=== PATIENT | male | born 1985 | race Hispanic/Latino ===

== ENCOUNTER 2017-10-28 15:23 | Emergency (ER) | payer SELFPAY ==
[2017-10-28 16:09] LABS: ABG BASE EXCESS 2.7 mmol/L (-2.0-3.0); ABG HCO3 28.5 mmol/L (21.0-28.0); ABG OXYGEN SATURATION 83.8 % (95.0-99.0); ABG PCO2 48 mmHg (35-48)
[2017-10-28] MEDS ORDERED: ACETAMINOPHEN EXTRA STRENGTH 500 MG TABLET ONE (16:36)
[2017-10-28 17:25] LABS: POTASSIUM 3.6 mmol/L (3.5-5.1)
== END 2017-10-28 18:18 | disposition home or self-care (01) ==
LOC: EDH 15:23
DX: T58.01XA Toxic effect of carbon monoxide from motor vehicle exhaust, accidental (unintentional), initial encounter (principal); R42 Dizziness and giddiness; Z72.0 Tobacco use; Y92.89 Other specified places as the place of occurrence of the external cause
CPT/HCPCS: 36415; 36600; 71046; 80048; 82330; 82435; 82550; 82803; 82947; 83605; 84132; 84295; 84484; 85018

== ENCOUNTER 2019-03-03 17:25 | Emergency (ER) | payer SELFPAY ==
[2019-03-03] MEDS ORDERED: KETOROLAC TROMETHAMINE 60 MG/2 ML VIAL ONE (18:18)
== END 2019-03-03 18:43 | disposition home or self-care (01) ==
LOC: EDH 17:25
DX: K02.9 Dental caries, unspecified (principal); F17.200 Nicotine dependence, unspecified, uncomplicated
CPT/HCPCS: 96372; 99283; J1885

== ENCOUNTER 2019-08-11 17:11 | Emergency (ER) | payer SELFPAY ==
[2019-08-11] MEDS ORDERED: KETOROLAC TROMETHAMINE 30MG/ML ONE (17:41)
[2019-08-11] MEDS ORDERED: CYCLOBENZAPRINE HCL 10 MG TABLET ONE (17:41)
== END 2019-08-11 18:32 | disposition home or self-care (01) ==
LOC: EDH 17:11
DX: S50.02XA Contusion of left elbow, initial encounter (principal); W22.8XXA Striking against or struck by other objects, initial encounter; Y93.89 Activity, other specified; Y92.488 Other paved roadways as the place of occurrence of the external cause; Y99.8 Other external cause status
CPT/HCPCS: 73080; 96372; 99283; J1885

== ENCOUNTER 2024-05-22 20:55 | Emergency (ER) | payer BC ==
[~2024-05-22] VITALS: Ht 170.2 cm; Wt 59.9 kg
[2024-05-22 21:05] VITALS: TEMP 98.1
--- NOTE | 2024-05-22 21:30 | ERN ---
ED Note History of Present Illness Stated Complaint: RT ARM INJURY Chief Complaint: Laceration/Avulsion Time Seen by MD: 20:58 Time Seen by Midlevel: 20:58 Dictation: The patient is a 39-year-old male with no past medical history who presents to the emergency department with complaints of wound to right upper arm after he accidentally was injured with a bone grinder at around 11:00 a.m.. Patient denies any other injuries. Unknown Tdap vaccines status Allergies: Coded Allergies: No Known Allergies (Unverified Allergy, Unknown, 03/03/19) Past Medical History Past Medical History: No Pertinent History Surgical History: None RN Note Reviewed/Agreed w/PFSH: Yes Review of System Dictation Constitutional: Negative for fever,chills, and weight loss Eyes: Negative for injury, pain,redness, and discharge ENT: Negative for injury,pain or swelling Cardiovascular: Negative for chest pain, palpitations, and edema Respiratory: Negative for shortness of breath, cough, and wheezing, Abdomen/GI: Negative for abdominal pain, nausea, vomiting, diarrhea, and constipation Back: Negative for injury and pain : Negative for injury, bleeding and discharge MS/Extremity: Negative for injury and deformity Skin: Negative for rash, and discoloration. Positive for right upper arm laceration Neuro: Negative for headache, weakness, numbness, tingling, and seizure Psych: Negative for suicide ideation, homicidal ideation, and hallucinations Initial Vital Sign VS Vital Signs Date Time Temp Pulse Resp B/P (MAP) Pulse Ox O2 Delivery O2 Flow Rate FiO2 05/22/24 20:57 96.6 77 16 130/97 100 Room Air 05/22/24 21:05 0 21 Physical Exam Dictation Vital Signs reviewed General Appearance: Alert, oriented x 3, no acute distress, well developed, nourished. Head and Face: non-traumatic. Eyes: PERRL, pink conjunctivas, eyelid no trauma, anterior chamber with arcus senilis. Ears: Pinnas intact and no signs of trauma or erythema ear canals clear and no discharge TM no erythema Nose: No discharge, no bleeding. Oropharynx: Mouth normal, tongue pink. pharynx clear,no erythema, tonsils no exudates, no abscesses noted, mucous membrane moist Neck: Supple, non-tender, no thyromegaly, no masses, no JVD, no bruits Breast:Deferred Chest:No tenderness, no crepitus, no paradoxical movement, no retractions Lungs:Clear, well-ventilated, symmetric, no rales, no wheezing, no rhonchi, no stridor, good breath sounds bilaterally Heart: Regular rate, regular rhythm, no murmur, no gallops Vascular: no peripheral edema, Abdomen: Soft, positive bowel sounds, nondistended, no guarding, nontender, no rebound, no masses no hepatomegaly, no splenomegaly, no Coelho's sign, no hernias. Rectal: Deferred Genital: Deferred Neurological: Normal speech, motor function intact, sensory function intact Musculoskeletal: Neck nontender, full range of motion, back nontender, full range of motion, Extremities: nontender, full range of motion Skin: Color pink, dry, no turgor, no rash, no abrasions, no contusions. 1.5 cm laceration to right upper arm, minimal bleeding. superficial abrasion about 4cm, bruising noted. Lymphatic: Deferred Results (Laboratory/Radiology) Labs Reviewed?: Yes ED Course ED Course Orders Procedure Category Date Status Time Humerus 2+Vws Rt RAD 05/22/24 Taken 21:04 Diph,Pertuss(Acell),Tet PHA 05/22/24 Complete Vac/Pf (Tdap) 21:30 Wound Care (Er) CPOE 05/22/24 Transmitted 21:04 Lidocaine Hcl 1% 20ml PHA 05/22/24 In Process Vial (Lidocaine Hc 21:30 Acetaminophen 500mg PHA 05/22/24 Complete Tab (Tylenol 500mg T 21:30 Cephalexin 500 Mg PHA 05/22/24 Complete Capsule (Keflex 500 Mg 21:30 Neomy PHA 05/22/24 In Process Sulf/Bacitra/Polymyxin 23:00 Current Medications Medications (Trade) Dose Ordered Sig/Rohini Route PRN Reason Start Time Stop Time Status Last Admin Dose Admin Acetaminophen (TYLenol 500MG TAB) 1,000 mg ONCE ONCE PO 05/22/24 21:30 05/22/24 21:31 DC 05/22/24 21:38 Cephalexin (Keflex 500 MG CAPS) 500 mg ONCE ONCE PO 05/22/24 21:30 05/22/24 21:31 DC 05/22/24 21:38 Diphtheria/ Tetanus/Acell Pertussis (Tdap) 0.5 ml ONCE ONCE IM 05/22/24 21:30 05/22/24 21:31 DC 05/22/24 21:37 Lidocaine HCl (Lidocaine HCl 1% 20ml Vial) 10 ml ONCE INJ 05/22/24 21:30 06/21/24 21:29 05/22/24 21:39 Neomycin/ Polymyxin/ Bacitracin (Triple Antibiotic Ointment) 1 appl ONCE ONCE TP 05/22/24 23:00 05/22/24 23:01 Vital Signs Date Time Temp Pulse Resp B/P (MAP) Pulse Ox O2 Delivery O2 Flow Rate FiO2 05/22/24 21:05 98.1 82 18 135/78 98 Room Air* 0 21 05/22/24 20:57 96.6 77 16 130/97 100 Room Air Medical Decision Making MDM The patient is a 39-year-old male with no past medical history who presents to the emergency department with complaints of wound to right upper arm after he accidentally was injured with a bone grinder at around 11:00 a.m.. Patient denies any other injuries. Unknown Tdap vaccines status no obvious fractures or foreign body seen on x-ray. Laceration repair done. Patient tolerated well, no foreign bodies identified, patient's arm neurovascularly intact. Will be discharged to follow up with the PCP. Differential diagnosis: Open fracture, laceration, cellulitis, retained foreign body Need for hospitalization: Patient does not meet criteria for hospitalization. There are no social concerns with this patient. Procedure Procedure Dictation: Time and Date Performed: 05/22/20240 INDICATION: Laceration Location: Right upper arm Informed consent was obtained. Pre-procedure time out was obtained. Anesthetic: 1% lidocaine 5 mL Manual prep of skin and wound was done with hibmarianans. Foreign Body: NO foreign bodies were identified. Length Repaired:1.5 cm Suture used:Nylon 4 # of simple sutures:3 Aseptic technique was used during the entire procedure. Wound Location: upper extremity Wound's Depth, Shape: superficial Wound Explored: clean Betadine Prep?: Yes Anesthesia: 1% Lidocaine Wound Debrided: minimal Suture Size/Type: 4:0, nylon Number of Sutures: 3 Layer Closure?: Yes DX & DISP Disposition: Discharge Departure Condition: Stable Scripts Cephalexin Monohydrate (Keflex) 500 Mg Cap 500 MG PO QID for 7 Days, #28 CAP Prov: ODALIS RAMIREZ LOGGING EQUIPMENT OPERATOR 05/22/24 Additional Instructions: Keep your stitches clean and dry. Do not put your stitches under water, such as in a bath, pool, or guzman. This can slow healing and raise your chance of getting an infection. Avoid activities or sports that could hurt the area of your stitches for 1-2 weeks. You should call your doctor if you develop any fever, redness or swelling around the cut, or pus draining from the cut. Your sutures will need to be removed in 7 days. FOLLOW-UP WITH PRIMARY CARE PROVIDER IN 1 TO 2 DAYS. TAKE MEDICATIONS DIRECTED HERE IN THE EMERGENCY ROOM. OKAY TO CONTINUE HOME MEDICATIONS UNLESS OTHERWISE DISCUSSED DURING YOUR VISIT IN THE EMERGENCY ROOM TODAY. RETURN TO YOUR NEAREST EMERGENCY ROOM IF SYMPTOMS WORSEN OR IF THERE IS NO IMPROVEMENT. CALL 911 IF YOU NEED IMMEDIATE ASSISTANCE. TAKE TYLENOL OR MOTRIN [id number] NEEDED AND IF NO CONTRAINDICATIONS ARE PRESENT. INCREASE ORAL HYDRATION. A WOUND CULTURE OR URINE CULTURE WAS ORDERED HERE IN THE EMERGENCY ROOM DEPARTMENT PLEASE FOLLOW-UP WITH PRIMARY CARE PROVIDER AND ADVISE THEM TO GET REPEAT PORTS FROM OUR FACILITY. IF YOU HAD ANY AMY WRAP/SPLINTS THAT WERE APPLIED HERE, PLEASE DO NOT REMOVE THEM UNTIL YOU SEE YOUR PRIMARY CARE OR SPECIALTY. Referrals: [facility] (PCP) Time of Disposition: 23:08 I have reviewed the case, and I agree with, Diagnosis and Plan ODALIS RAMIREZ May 22, 2024 21:30
[2024-05-22] MEDS: DIPH,PERTUSS(ACELL),TET VAC/PF 0.5 ML VIAL IM ONE (21:37)
[2024-05-22] MEDS: cePHALexin 500 MG CAPSULE PO ONE (21:38)
[2024-05-22] MEDS: acetaMINOPHEN 500 MG TABLET PO ONE (21:38)
[2024-05-22] MEDS: LIDOCAINE HCL 1% 20 ML VIAL INJ SCH (21:39)
[2024-05-22] MEDS: NEOMY SULF/BACITRA/POLYMYXIN B 1 EACH PACKET TP ONE (23:04)
[2024-05-22] MEDS ORDERED: CEPH500B PO (23:08)
[2024-05-22 23:12] VITALS: BP 140/81; PULSE 80; RESP 18; O2SAT 98
--- NOTE | 2024-05-23 08:56 | HMCIMG ---
Exam Type: HUMERUS 2+VWS RT Clinical Information: trauma Comparison: None Findings: The bone examination is unremarkable. No fractures or dislocations are seen. No radiopaque foreign bodies are noted. Soft tissues are preserved. IMPRESSION: Normal examination.
== END 2024-05-22 23:17 | disposition home or self-care (01) ==
LOC: EDH 20:55
DX: S41.111A Laceration without foreign body of right upper arm, initial encounter (principal); X58.XXXA Exposure to other specified factors, initial encounter; Y93.89 Activity, other specified; Y92.89 Other specified places as the place of occurrence of the external cause; Y99.8 Other external cause status
CPT/HCPCS: 12001; 73060; 90471; 90715; 99284